=== PATIENT | female | born 2005 | race Two or more races ===

== ENCOUNTER 2024-12-09 10:46 | Outpatient (CLI) | payer OTHER | END 2024-12-09 10:56 | disposition home or self-care (01) | LOC: TOM 10:46 | DX: L05.01 Pilonidal cyst with abscess (principal) ==

== ENCOUNTER 2025-01-01 10:40 | Outpatient (CLI) | payer OTHER | END 2025-01-01 10:57 | disposition home or self-care (01) | LOC: TOM 10:40 | PROVIDERS: ATTEND Pediatrics | DX: G44.221 Chronic tension-type headache, intractable (principal) ==